=== PATIENT | male | born 1965 | race Caucasian/White ===

== ENCOUNTER 2022-11-29 18:52 | Inpatient (IN) ==
--- NOTE | 2022-11-29 19:06 | Emergency Department Note ---
HPI General Chief complaint: Nausea/Vomiting/Diarrhea Stated complaint: Nausea Time Seen by Provider: 11/29/22 19:05 Source: patient Mode of arrival: ambulatory Limitations: no limitations History of Present Illness HPI Narrative: Narrative: Patient is a 57-year-old male with a history of lower extremity edema, obs tructive sleep apnea, hypertension, and hypokalemia who presents to the emergency department due to flulike symptoms. He endorses headache, runny nose, sore throat, cough, nausea, vomiting, and diarrhea. He states that his headache is throughout his head. He also endorses pain in the upper part of the belly and lower part of the chest that just started when he coughs. He denies shortness of breath or any other symptoms. Related Data Home Medications Medication Instructions Recorded Confirmed Voltaren miscellaneous 05/18/21 11/22/22 clonazepam 2 mg tablet 2 mg PO .COMPLEX PRN 05/18/21 11/22/22 paroxetine HCl 20 mg tablet (Paxil) 20 mg PO QDAY 05/18/21 11/22/22 Previous Rx's Medication Instructions Recorded CPAP and supplies #1 ea 05/30/22 furosemide 20 mg tablet 20 mg PO QDAY #90 tabs 08/01/22 enalapril maleate 5 mg tablet 5 mg PO DAILY #90 tabs 10/01/22 metolazone 5 mg tablet 5 mg PO QDAY #10 tabs 11/22/22 Allergies Allergy/AdvReac Type Severity Reaction Status Date / Time No Known Drug Allergies Allergy Verified 11/22/22 15:53 Review of Systems ROS ROS Narrative: Narrative: Constitutional: Denies fever or weakness Eyes: Denies eye pain or vision change ENT ED: Reports throat pain and rhinorrhea; Denies hearing loss Cardiovascular: Reports chest pain (When coughing) and edema; Denies dyspnea on exertion or orthopnea Respiratory: Reports cough; Denies shortness of breath Gastrointestinal: Reports abdominal pain (When coughing), nausea, vomiting and diarrhea; Denies constipation, hematochezia or melena Genitourinary: Denies dysuria, frequency or hematuria Musculoskeletal: Denies back pain or myalgia Integumentary: Denies rash or lesions Neurological: Reports headache; Denies weakness, numbness, confusion, abnormal gait or dizziness Hematological/Lymphatic: Denies easy bruising PFSH Narrative Patient History Narrative: Narrative: Medical/Surgical/Family History All Active Problems (Updated 11/29/22 @ 23:06 by Sudhakar Huffman MD) Acute hyponatremia (Acute) Acute hypokalemia (Acute) Hypochloremia (Acute) Lower extremity edema (Acute) Ganglion cyst of dorsum of right wrist (Acute) Wrist pain (Acute) GARFIELD (obstructive sleep apnea) (Acute) Depression (Acute) PTSD (post-traumatic stress disorder) (Acute) Overweight (Acute) Arthritis (Acute) Hypertension (Acute) Medication refill (Acute) Upper respiratory infection (Acute) Epistaxis (Acute) Jaundice (Acute) Liver masses (Acute) Encephalopathy (Acute) Gastroenteritis (Acute) Cellulitis (Acute) Cellulitis of leg without foot, right (Acute) Fever (Acute) Left knee pain (Acute) Medical History (Updated 11/29/22 @ 23:06 by Sudhakar Huffman MD) Arthritis Depression Ganglion cyst of dorsum of right wrist Hypertension Lower extremity edema GARFIELD (obstructive sleep apnea) Overweight PTSD (post-traumatic stress disorder) Upper respiratory infection Wrist pain Surgical History History of right knee surgery (~2020) torn lateral and medial meniscus History of shoulder surgery (~2003) Right/rotator cuff History of tonsillectomy (~1975) Family History Son Bone cancer Mother Lung cancer Father High blood pressure Social History Smoking Status: Never smoker Alcohol Intake Frequency: a few times a week Substance Use: does not use and marijuana Exam Narrative Narrative: Narrative: General Limitations: no limitations General appearance: Present alert and in no apparent distress; Absent anxious, appears intoxicated or sleepy Head Head: Present atraumatic and normocephalic Eye Eye: Present PERRL and EOMI; Absent scleral icterus or nystagmus ENT ENT: Present mucous membranes moist and nasal congestion Neck Neck: Present full ROM and trachea midline Chest Chest: Present normal inspection, symmetric chest wall rise and tenderness Respiratory Respiratory: Present normal lung sounds bilaterally; Absent respiratory distress, rales/crackles, wheezes, stridor or accessory muscle use Cardiovascular Cardiovascular: Present regular rate, normal rhythm and normal heart sounds Adbominal Abdominal: Present soft and normal bowel sounds; Absent distention or tenderness Extremities Extremities: Present normal inspection, full ROM, pedal edema and pretibial edema; Absent tenderness Back Back: Present normal inspection and full ROM Neurological Neurological: Present alert and oriented X3; Absent motor sensory deficit Psychiatric Psychiatric: Present normal affect and normal mood Skin Skin: Present warm (WNL), dry and normal color Course Vital Signs Vital signs: Vital Signs Temperature 97.7 F 11/29/22 18:54 Pulse Rate 99 H 11/29/22 18:54 Respiratory Rate 20 11/29/22 18:54 Blood Pressure 157/86 11/29/22 18:54 Pulse Oximetry (%) 94 11/29/22 18:54 Oxygen Delivery Method Room Air 11/29/22 18:54 Temperature 97.7 F 11/29/22 18:54 Pulse Rate 92 H 11/29/22 22:31 Respiratory Rate 16 11/29/22 22:31 Blood Pressure 158/77 11/29/22 22:31 Pulse Oximetry (%) 95 11/29/22 22:31 Oxygen Delivery Method Room Air 11/29/22 18:54 MDM MDM Narrative Medical decision making narrative: Narrative: Patient is a 57-year-old male who presents to the emergency department due to concern about flulike symptoms. Differential diagnoses include COVID, influenza, other viral infection, bacterial pneumonia, dehydration, electrolyte abnormality. Patient is found to have hyponatremia with a sodium of 122. He is also found to have hypokalemia with a potassium of 2.4. His chloride is 77. Patient's labs and x-ray are otherwise reassuring. Due to his symptoms and low sodium I have spoken to Dr. Rodriguezk was agreed to evaluate patient for admission. Lab Data 11/29/22 19:36 Labs: Lab Results 11/29/22 11/29/22 11/29/22 Range/Units 19:36 19:36 19:51 WBC 10.8 (4.5-11.0) K/mcL RBC 5.30 (4.63-6.08) M/mcL Hgb 15.7 (13.7-17.5) g/dL Hct 43.1 (40.1-51.0) % POC Hct 48.0 (41-55) MCV 81.3 (80.0-100.0) fL MCH 29.6 (26.0-34.0) pg MCHC 36.4 H (31.0-36.0) g/dL RDW 11.9 (11.5-14.5) % Plt Count 225 (140-440) K/mcL MPV 9.6 (8.8-12.5) fL Immature Gran % (Auto) 0.6 H (0.0-0.5) % Neut % (Auto) 84.4 H (38.0-78.0) % Lymph % (Auto) 5.8 L (15.5-49.0) % [place] % (Auto) 8.8 (1.0-12.0) % Eos % (Auto) 0.1 (0.0-7.0) % Baso % (Auto) 0.3 (0.0-2.0) % Lymph # (Auto) 0.63 L (1.50-4.80) K/mcL [place] # (Auto) 0.95 H (0.10-0.90) K/mcL Eos # (Auto) 0.01 (0.00-0.70) K/mcL Baso # (Auto) 0.03 (0.00-0.30) K/mcL Immature Gran # 0.06 H (0.00-0.05) K/mcl Absolute Neutrophils 9.15 H (1.80-8.00) K/mcL POC Sodium 122 L (133-145) POC Potassium 2.4 L* (3.3-5.1) POC Chloride 77 L (96-108) POC Total CO2 32.0 H (22-30) POC BUN 10 (6-20) POC Creatinine 1.1 (0.6-1.2) POC Glucose 146 H (70-105) POC WB Ioniz Calcium 0.93 L (1.16-1.32) NT-Pro-B Natriuret Pep 49.3 (<125.0) pg/mL Discharge Plan Patient/Caregiver Discharge Instructions Pt seen by [facility]IGHER/PA only: No Clinical Impression: Acute hyponatremia, Acute hypokalemia, Hypochloremia Patient Disposition: Xfer As Inpt ([facility]) Follow up with: Kathi Terrell DO [Primary Care Provider] - Prescriptions: No Action (DME) CPAP and supplies See Rx Instructions .Route .MEDSUPPLY Qty: 1 0RF Rx Instructions: As directed furosemide 20 mg tablet 20 mg PO QDAY Qty: 90 1RF enalapril maleate 5 mg tablet 5 mg PO DAILY Qty: 90 0RF paroxetine HCl [Paxil] 20 mg tablet 20 mg PO QDAY clonazepam 2 mg tablet 2 mg PO .COMPLEX PRN Rx Instructions: 2 mg PO PRN; Voltaren miscellaneous metolazone 5 mg tablet 5 mg PO QDAY Qty: 10 0RF
--- NOTE | 2022-11-29 19:20 | XRay Report ---
INDICATION: Cough TECHNIQUE: AP portable upright chest x-ray COMPARISON: Previous examination dated 04/28/2014 FINDINGS: Lungs:Lungs are negative. No focal pulmonary parenchymal infiltrate or mass Heart, vascular:No significant cardiomegaly. Pulmonary vascularity is normal. No pulmonary edema or pulmonary congestion Mediastinum, soo:No mediastinal widening. No hilar mass Pleura:No pleural fluid. No pleural-based mass or calcification Skeletal:Negative. IMPRESSION: Negative AP portable chest x-ray Interpreted and Authenticated by: Prasanna Duffy 11/29/22
[2022-11-29] MEDS ORDERED: 0.9 % SODIUM CHLORIDE 500 ML IV ONE (19:37)
[2022-11-29] MEDS ORDERED: ONDANSETRON 4 MG/2 ML VIAL IV ONE (19:37)
[2022-11-29 19:42] LABS: POC Calcium, Ionized 0.93 (1.16-1.32); POC Creatinine 1.1 (0.6-1.2); POC Potassium 2.4 (3.3-5.1)
[2022-11-29] MEDS ORDERED: POTASSIUM CHLORIDE 20 MEQ TABLET PO ONE ×3 (19:46→23:40)
[2022-11-29] MEDS ORDERED: POTASSIUM CHLORIDE 20 MEQ in DEXTROSE 5% IN WATER 250 ML IV ONE (19:46)
[2022-11-29 20:16] LABS: Basophils # (Auto) 0.03 K/mcL (0.00-0.30); Basophils % (Auto) 0.3 % (0.0-2.0); Eosinophils # (Auto) 0.01 K/mcL (0.00-0.70); Eosinophils % (Auto) 0.1 % (0.0-7.0); Hematocrit 43.1 % (40.1-51.0); Hemoglobin 15.7 g/dL (13.7-17.5); Lymphocytes # (Auto) 0.63 K/mcL (1.50-4.80); Lymphocytes % (Auto) 5.8 % (15.5-49.0); Mean Cell Volume 81.3 fL (80.0-100.0); Mean Corpuscular HGB Conc 36.4 g/dL (31.0-36.0); Mean Platelet Volume 9.6 fL (8.8-12.5); Monocytes # (Auto) 0.95 K/mcL (0.10-0.90); Monocytes % (Auto) 8.8 % (1.0-12.0); Neutrophils % (Auto) 84.4 % (38.0-78.0); Platelet Count 225 K/mcL (140-440); Red Cell Distribution Width 11.9 % (11.5-14.5); WBC 10.8 K/mcL (4.5-11.0)
[2022-11-29 20:21] LABS: proBNP 49.3 pg/mL (<125.0)
--- NOTE | 2022-11-29 22:40 | Internal Med History&Physical ---
HPI History of Present Illness Patient information: Note initiated : 11/29/22 at 10:35 pm Service Date, if different from initiated Date: [] Patient: Roosevelt Roberson 57 y/o M admitted on for Nausea. Chief Complaint: [] History of present illness: Mr. Roberson is a 57 year old male with a history of hypertension, lower extremity edema, obstructive sleep apnea, obesity presented to the emergency department for nausea, vomiting, headache and about 1 day of diarrhea. Patient says that his symptoms began about 2 days prior to admission and have been preceded by about 5 days of a cough. The patient says he was recently prescribed metolazone in addition to Lasix for lower extremity edema. In the emergency department, the patient was found to be hyponatremic and hypokalemic. Hospital medicine was consulted for admission for the patient's hyponatremia and hypokalemia. Review of systems Constitutional: no fever, fatigue, or weight loss Eyes: no vision changes or pain Cardiovascular: no chest pain, no palpitations Respiratory: Positive for cough, denies exertional dyspnea Gastrointestinal: Positive for upper abdominal pain, positive for nausea and vomiting Genitourinary: no dysuria or difficulty voiding Musculoskeletal: Positive for left lower extremity edema Integumentary: no skin lesion or wound Neurological: no focal weakness or numbness Psychiatric: no anxiety or depression PFSH PFSH All Active Problems (Updated 11/29/22 @ 23:06 by Sudhakar Huffman MD) Acute hyponatremia (Acute) Acute hypokalemia (Acute) Hypochloremia (Acute) Lower extremity edema (Acute) Ganglion cyst of dorsum of right wrist (Acute) Wrist pain (Acute) GARFIELD (obstructive sleep apnea) (Acute) Depression (Acute) PTSD (post-traumatic stress disorder) (Acute) Overweight (Acute) Arthritis (Acute) Hypertension (Acute) Medication refill (Acute) Upper respiratory infection (Acute) Epistaxis (Acute) Jaundice (Acute) Liver masses (Acute) Encephalopathy (Acute) Gastroenteritis (Acute) Cellulitis (Acute) Cellulitis of leg without foot, right (Acute) Fever (Acute) Left knee pain (Acute) Medical History (Updated 11/29/22 @ 23:06 by Sudhakar Huffman MD) Arthritis Depression Ganglion cyst of dorsum of right wrist Hypertension Lower extremity edema GARFIELD (obstructive sleep apnea) Overweight PTSD (post-traumatic stress disorder) Upper respiratory infection Wrist pain Surgical History History of right knee surgery (~2020) torn lateral and medial meniscus History of shoulder surgery (~2003) Right/rotator cuff History of tonsillectomy (~1975) Family History Son Bone cancer Mother Lung cancer Father High blood pressure Social History marital status: occupational status: retired smoking status: Never smoker alcohol intake frequency: a few times a week substance use type: does not use and marijuana MEDS/ALLERGIES Home Medications and Allergies Home Medications Medication Instructions Recorded Confirmed Type Voltaren 1 % miscellaneous PRN PRN Joint 05/18/21 11/30/22 History Stiffness clonazepam 2 mg tablet 2 mg PO .COMPLEX PRN Sleep 05/18/21 11/30/22 History paroxetine HCl 20 mg tablet (Paxil) 20 mg PO QDAY 05/18/21 11/30/22 History CPAP and supplies #1 ea 05/30/22 11/30/22 Rx furosemide 20 mg tablet 20 mg PO QDAY #90 tabs 08/01/22 11/30/22 Rx enalapril maleate 5 mg tablet 5 mg PO DAILY #90 tabs 10/01/22 11/30/22 Rx metolazone 5 mg tablet 5 mg PO QDAY #10 tabs 11/22/22 11/30/22 Rx Allergies Allergy/AdvReac Type Severity Reaction Status Date / Time No Known Drug Allergies Allergy Verified 11/22/22 15:53 EXAM Constitutional Vitals: Temp Pulse Resp BP Pulse Ox O2 Del Method 97.7 F 89 19 155/85 90 Room Air 11/29/22 18:54 11/29/22 21:31 11/29/22 21:46 11/29/22 21:46 11/29/22 21:31 11/29/22 18:54 DATA Data Completed and Pending Labs: Labs from last 24 hours 11/29/22 11/29/22 11/29/22 19:51 19:36 19:36 WBC 10.8 RBC 5.30 Hgb 15.7 Hct 43.1 POC Hct 48.0 MCV 81.3 MCH 29.6 MCHC 36.4 H RDW 11.9 Plt Count 225 MPV 9.6 Immature Gran % (Auto) 0.6 H Neut % (Auto) 84.4 H Lymph % (Auto) 5.8 L [place] % (Auto) 8.8 Eos % (Auto) 0.1 Baso % (Auto) 0.3 Lymph # (Auto) 0.63 L [place] # (Auto) 0.95 H Eos # (Auto) 0.01 Baso # (Auto) 0.03 Immature Gran # 0.06 H Absolute Neutrophils 9.15 H POC Sodium 122 L POC Potassium 2.4 L* POC Chloride 77 L POC Total CO2 32.0 H POC BUN 10 POC Creatinine 1.1 POC Glucose 146 H POC WB Ioniz Calcium 0.93 L NT-Pro-B Natriuret Pep 49.3 A/P Narrative A/P Narrative: Assessment: 57 year old male with a history of hypertension, lower extremity edema, obesity presented to the ED for nausea, vomiting, diarrhea and headache and found to have moderate hyponatremia and severe hypokalemia. Patient is also noted to have asymmetric left lower extremity pitting edema. #Nausea, vomiting, diarrhea and headache #Moderate hyponatremia #Severe hypokalemia #Left lower extremity edema #Abdominal pain #Mild hyperglycemia #Hypertension #Lower extremity edema #Obstructive sleep apnea #Obesity BMI 53 Plan -Follow sodium level, avoid overcorrection. -Received IV fluid in the ED. -Check urine protein:creatinine ratio. -Check LFTs. -Potassium supplementation. -Left lower extremity venous duplex. -Hold home diuretics for now. -Home medication reconciliation. -Regular diet. -DVT prophylaxis: Lovenox -Disposition: Admit to inpatient MedSurg. Time Spent With Patient Time: Total time spent is greater than 50% in coordination of care (as documented) at patient's floor/unit and/or counseling patient:
[2022-11-29] MEDS ORDERED: ACETAMINOPHEN 500 MG TABLET PO ONE (23:06)
[2022-11-29] MEDS ORDERED: ACETAMINOPHEN 325 MG TABLET PO PRN (23:30)
[2022-11-29] MEDS: ONDANSETRON 4 MG/2 ML VIAL IV PRN (23:49)
[2022-11-29] MEDS: ONDANSETRON 4 MG/2 ML VIAL ONE (23:49)
[2022-11-30] MEDS: ONDANSETRON 4 MG/2 ML VIAL ONE (01:23)
[2022-11-30] MEDS: 0.9 % SODIUM CHLORIDE 10 ML SYRINGE IV SCH ×4 (06:09→21:46)
[2022-11-30 06:39] LABS: Creatinine, Spot Urine 71.3 mg/dL (39.0-259.0); Pro:Crea Ratio 0.08 (<0.20)
[2022-11-30 07:26] LABS: ALT/SGPT 52 U/L (<40); AST/SGOT 52 U/L (<40); Albumin 4.1 gm/dL (3.2-5.2); Albumin/Globulin Ratio 1.3 (1.0-2.3); Alkaline Phosphatase 83 U/L (39-117); Bilirubin,Direct 0.3 mg/dL (<0.3); Bilirubin,Total 1.7 mg/dL (0.1-1.0); Blood Urea Nitrogen 12 mg/dL (6-20); Calcium 8.6 mg/dL (8.6-10.4); Carbon Dioxide 33 mmol/L (22-30); Chloride 81 mmol/L (96-108); Globulin 3.2 gm/dL (2.2-3.7); Glomerular Filtration Rate 84; Glucose 135 mg/dL (70-105); Lactate Dehydrogenase 209 U/L (135-225); Phosphorous 2.7 mg/dL (2.5-4.5); Triglycerides 101 mg/dL (<150); Uric Acid 10.6 mg/dL (2.5-8.0)
[2022-11-30] MEDS ORDERED: POTASSIUM CHLORIDE 20 MEQ TABLET PO ONE ×3 (08:16→20:00)
[2022-11-30] MEDS: ENOXAPARIN 40 MG/0.4 ML SYRINGE SQ SCH (13:50)
[2022-11-30] MEDS: ONDANSETRON 4 MG/2 ML VIAL IV PRN (14:21)
--- NOTE | 2022-11-30 15:21 | Ultrasound Report ---
INDICATION: Left lower extremity edema. COMPARISON: None. TECHNIQUE: Grayscale and color flow Doppler spectral imaging of the deep venous system in the left lower extremity. FINDINGS: Negative examination. No evidence for deep venous thrombosis. Negative left common femoral vein, femoral vein, popliteal vein. Posterior tibial veins and peroneal veins are negative. Greater and lesser saphenous veins are negative. IMPRESSION: Negative examination for deep venous thrombosis. Negative left lower extremity deep venous ultrasound. Interpreted and Authenticated by: Prasanna Duffy 11/30/22
[2022-11-30 17:49] LABS: Blood Urea Nitrogen 15 mg/dL (6-20); Calcium 9.1 mg/dL (8.6-10.4); Carbon Dioxide 32 mmol/L (22-30); Chloride 83 mmol/L (96-108); Glomerular Filtration Rate 67; Glucose 124 mg/dL (70-105)
[2022-11-30] MEDS ORDERED: SENNOSIDES 1 TABLET PO SCH (21:00)
[2022-11-30] MEDS ORDERED: clonazePAM 1 MG TABLET PO PRN (21:00)
[2022-11-30] MEDS: LISINOPRIL 5 MG TABLET PO SCH (21:29)
[2022-11-30] MEDS: PARoxetine 20 MG TABLET PO SCH (21:29)
[2022-12-01] MEDS: 0.9 % SODIUM CHLORIDE 10 ML SYRINGE IV SCH ×2 (06:03→16:23)
[2022-12-01 07:44] LABS: ALT/SGPT 61 U/L (<40); AST/SGOT 69 U/L (<40); Albumin 4.2 gm/dL (3.2-5.2); Albumin/Globulin Ratio 1.3 (1.0-2.3); Alkaline Phosphatase 84 U/L (39-117); Bilirubin,Direct 0.4 mg/dL (<0.3); Bilirubin,Total 1.7 mg/dL (0.1-1.0); Blood Urea Nitrogen 16 mg/dL (6-20); Calcium 8.7 mg/dL (8.6-10.4); Carbon Dioxide 33 mmol/L (22-30); Chloride 85 mmol/L (96-108); Globulin 3.3 gm/dL (2.2-3.7); Glomerular Filtration Rate 67; Glucose 115 mg/dL (70-105); Lactate Dehydrogenase 210 U/L (135-225); Phosphorous 2.6 mg/dL (2.5-4.5); Triglycerides 130 mg/dL (<150); Uric Acid 9.7 mg/dL (2.5-8.0)
[2022-12-01] MEDS ORDERED: POTASSIUM CHLORIDE 20 MEQ TABLET PO ONE ×2 (07:47→12:00)
[2022-12-01] MEDS ORDERED: POTASSIUM PHOSPHATE 40 MEQ in DEXTROSE 5% IN WATER 500 ML IV ONE (08:13)
[2022-12-01] MEDS ORDERED: POTASSIUM CHLORIDE 20 MEQ in DEXTROSE 5% IN WATER 250 ML IV ONE (09:00)
[2022-12-01] MEDS: ENOXAPARIN 40 MG/0.4 ML SYRINGE SQ SCH (09:23)
[2022-12-01] MEDS: PARoxetine 20 MG TABLET PO SCH (09:23)
[2022-12-01] MEDS: LISINOPRIL 5 MG TABLET PO SCH (09:23)
[2022-12-01 15:49] LABS: Blood Urea Nitrogen 17 mg/dL (6-20); Calcium 8.6 mg/dL (8.6-10.4); Carbon Dioxide 32 mmol/L (22-30); Chloride 87 mmol/L (96-108); Glomerular Filtration Rate 67; Glucose 142 mg/dL (70-105)
--- NOTE | 2022-12-01 16:01 | Discharge Summary ---
Discharge Provider Provider IMPORTANT FOLLOW-UP INFORMATION FOR PCP: Patient information: Note initiated : 12/01/22 at 3:55 pm Service Date, if different from initiated Date: [] Patient: Roosevelt Roberson 57 y/o M admitted on 11/29/22 for Nausea. Chief Complaint: [] Date of admission: 11/29/22 23:25 Discharge date: 12/01/22 Primary care physician: Kathi Terrell DO Consults: 11/29/22 Consult to Physician [CONS] Stat Comment: Consulting Provider: Leonard Morgan Reason For Exam: Physician to Consult COURSE Hospital Course Hospital course: Mr. Roberson is a 57 year old male with a history of hypertension, lower extremity edema, obstructive sleep apnea, obesity presented to the emergency department for nausea, vomiting, headache and about 1 day of diarrhea. Patient says that his symptoms began about 2 days prior to admission and have been preceded by about 5 days of a cough. The patient says he was recently prescribed metolazone in addition to Lasix for lower extremity edema. In the emergency department, the patient was found to be hyponatremic and hypokalemic. Hospital medicine was consulted for admission for the patient's hyponatremia and hypokalemia. The patient was provided supplementation for hypokalemia. Lasix and metolazone were held, sodium level trended up. The patient had left lower extremity edema upon presentation, a left lower extremity venous duplex was negative for DVT. The patient's potassium improved to 3.1, sodium remained in the moderate low range. The patient did have fever and high-grade temperature early in the hospitalization, I suspect this is secondary to a viral illness that may have been causing nausea, vomiting, headache and self-limited diarrhea. Patient's symptoms resolved during the hospitalization. The patient was discharged to home with oral potassium supplementation for 5 days. I informed the patient to hold Lasix until he sees his primary care provider and discontinue metolazone entirely. I also recommended that the patient limit his fluid intake. The patient says he has an appointment with his primary care provider later this week. I recommend that patient have a repeat basic metabolic panel to follow-up on his electrolyte abnormalities. Review of systems Constitutional: no fever, fatigue, or weight loss Eyes: no vision changes or pain Cardiovascular: no chest pain, no palpitations Respiratory: Positive for cough, denies exertional dyspnea Gastrointestinal: Obesely distended, soft and nontender. Genitourinary: no dysuria or difficulty voiding Musculoskeletal: Positive for left lower extremity edema Integumentary: no skin lesion or wound Neurological: no focal weakness or numbness Psychiatric: no anxiety or depression Discharge diagnosis: Severe hypokalemia likely secondary to combined diuretic therapy Secondary discharge diagnosis: Hyponatremia Time Spent with Patient Time attestation: Total time spent providing and/or coordinating discharge services: Time spent: Greater than 30 minutes EXAM Constitutional Vitals: Temp Pulse Resp BP Pulse Ox O2 Del Method 98.0 F 72 20 128/62 92 Room Air 12/01/22 12:00 12/01/22 12:00 12/01/22 12:00 12/01/22 12:00 12/01/22 12:00 12/01/22 12:00 Discharge Data Data Completed and Pending Labs on day of discharge: Labs from last 24 hours 12/01/22 12/01/22 11/30/22 15:02 05:08 16:43 Sodium 127 L 128 L 128 L Potassium 3.1 L 2.7 L* 2.7 L* Chloride 87 L 85 L 83 L Carbon Dioxide 32 H 33 H 32 H Anion Gap 8.0 10.0 13.0 BUN 17 16 15 Creatinine 1.2 1.2 1.2 GFR Calculation 67 67 67 Glucose 142 H 115 H 124 H Uric Acid 9.7 H Calcium 8.6 8.7 9.1 Phosphorus 2.6 Magnesium 2.4 Total Bilirubin 1.7 H Direct Bilirubin 0.4 H GGT 134 H AST 69 H ALT 61 H Alkaline Phosphatase 84 Lactate Dehydrogenase 210 Total Protein 7.5 Albumin 4.2 Globulin 3.3 Albumin/Globulin Ratio 1.3 Triglycerides 130 Discharge Plan Patient/Caregiver Discharge Instructions Activity: increase activity as tolerated Diet: Low Sodium (2gm) Activity Restrictions/Additional Instructions: Limit fluid intake to no more than 2 liters per day. Take potassium 20 mEq daily for 5 days. Hold Lasix until you see your primary care provider for further instructions. Discontinue metolazone. Prescriptions: New potassium chloride 20 mEq tablet extended release 20 meq PO QDAY 5 Days Qty: 5 0RF Continued (DME) CPAP and supplies See Rx Instructions .Route .MEDSUPPLY Qty: 1 0RF Rx Instructions: As directed enalapril maleate 5 mg tablet 5 mg PO DAILY Qty: 90 0RF paroxetine HCl [Paxil] 20 mg tablet 20 mg PO QDAY clonazepam 2 mg tablet 2 mg PO .COMPLEX PRN (Reason: Sleep) Rx Instructions: 2 mg PO PRN; Voltaren gel 1 % miscellaneous PRN PRN (Reason: Joint Stiffness) Discontinued furosemide 20 mg tablet 20 mg PO QDAY Qty: 90 1RF metolazone 5 mg tablet 5 mg PO QDAY Qty: 10 0RF Follow Up Plan Follow up with: Kathi Terrell DO [Primary Care Provider] - Patient Disposition: Home, Self-Care Overall status at discharge: patient is progressing back to baseline Discharge Orders: Discharge Order (Routine); Ordered 12/01/22 Ordered By: Leonard SHEEHAN VTE Deep Vein Thrombosis/Pulmonary Embolism Present on Admission: No
== END 2022-12-01 17:50 | disposition home or self-care (01) | DRG 641 ==
LOC: ED 18:52 → MEDSUR 23:25
PROVIDERS: ADMIT Internal Medicine; ATTEND Internal Medicine